=== PATIENT | female | born 1955 | race Caucasian/White ===

== ENCOUNTER 2021-08-05 08:46 | Outpatient (CLI) | payer OTHER ==
[~2021-08-05 08:46] MED LIST: ASA-EC81 MG; CIPRO500 MG PO; FLAGYL500MG PO; METFORMIN HCL500 MG; PEPCID20 MG; PROTONIX40 MG PO
== END 2021-08-05 08:48 | disposition home or self-care (01) ==
LOC: NUCLEAR 08:46
PROVIDERS: ATTEND Surgery
DX: K57.30 Diverticulosis of large intestine without perforation or abscess without bleeding (principal); K58.0 Irritable bowel syndrome with diarrhea; K58.1 Irritable bowel syndrome with constipation; R15.9 Full incontinence of feces; K80.80 Other cholelithiasis without obstruction
CPT/HCPCS: 78226; A9537

== ENCOUNTER 2023-10-25 21:33 | Emergency (ER) | payer OTHER ==
[~2023-10-25] VITALS: Ht 160 cm; Wt 84.8 kg
[2023-10-25] MEDS ORDERED: CRESTOR20 MG PO (21:59)
[2023-10-25] MEDS ORDERED: JANUVIA100 MG PO (21:59)
[2023-10-25] MEDS ORDERED: LEVOTHYROXINE25 MCG (21:59)
[2023-10-25] MEDS ORDERED: ADULT LOW DOSE81 M1 (22:00)
[2023-10-25] MEDS ORDERED: MESALAMINE1 GM MC (22:00)
[2023-10-25] MEDS ORDERED: LASIX20 MG (22:00)
[2023-10-25] MEDS ORDERED: SINGULAIR5 MG (22:01)
[2023-10-25 23:16] LABS: HEMATOCRIT 41.3 % (36.0-45.00); HEMOGLOBIN 13.6 g/dL (12.0-15.00); MEAN CELL VOLUME 86.2 fL (80.00-100.00); MEAN CORPUSCULAR HEMOGLOBIN 28.4 pg (27.00-32.0); MEAN CORPUSCULAR HGB CONC 32.9 g/dl (32.0-36.0); PLATELET COUNT 218 K/uL (150-450); RED BLOOD COUNT 4.79 M/uL (4.00-6.00)
[2023-10-25 23:35] LABS: ALBUMIN 3.9 gm/dL (3.4-5.0); BILIRUBIN TOTAL 0.38 mg/dL (0.3-1.2); CALCIUM 9.3 mg/dL (8.5-10.1); CREATININE SERUM 0.75 mg/dL (0.55-1.02); GFR 77.08; GLOBULINA 4.2 G/DL (2.4-3.5); POTASSIUM 4.21 mEq/L (3.5-5.1); TOTAL PROTEIN 8.1 gm/dL (6.4-8.2)
== END 2023-10-26 11:02 | disposition home or self-care (01) ==
LOC: ER 21:34
PROVIDERS: General Practice
DX: R10.9 Unspecified abdominal pain (principal); E11.9 Type 2 diabetes mellitus without complications; Z79.84 Long term (current) use of oral hypoglycemic drugs; E03.9 Hypothyroidism, unspecified; I10 Essential (primary) hypertension; Z88.0 Allergy status to penicillin; K57.92 Diverticulitis of intestine, part unspecified, without perforation or abscess without bleeding; K52.89 Other specified noninfective gastroenteritis and colitis; Z88.8 Allergy status to other drugs, medicaments and biological substances
CPT/HCPCS: 36415; 74177; 96365; 96366; 99284; J0744; J1885; J2405; J3490; J7030; Q9965

== ENCOUNTER 2023-11-06 09:28 | Outpatient (CLI) | payer OTHER ==
[~2023-11-06 09:28] MED LIST changes: +ADULT LOW DOSE81 M1; +CRESTOR20 MG PO; +JANUVIA100 MG PO; +LASIX20 MG; +LEVOTHYROXINE25 MCG; +MESALAMINE1 GM MC; +SINGULAIR5 MG
== END 2023-11-06 09:29 | disposition home or self-care (01) ==
LOC: NUCLEAR 09:28
PROVIDERS: ATTEND Surgery
DX: K57.30 Diverticulosis of large intestine without perforation or abscess without bleeding (principal); K58.0 Irritable bowel syndrome with diarrhea; R15.9 Full incontinence of feces; K80.00 Calculus of gallbladder with acute cholecystitis without obstruction
CPT/HCPCS: 78227; A9537; J2805